=== PATIENT | female | born 1960 | race Caucasian/White ===

== ENCOUNTER 2019-12-09 21:58 | Emergency (ER) | payer MEDICARE, MEDICAID ==
[~2019-12-09] VITALS: Ht 162.6 cm; Wt 100.0 kg
[~2019-12-09 21:58] MED LIST: COLACE100 MG PO; EFFEXOR75 MG PO; ELIQUIS2.5 MG PO; HYDROCODONE-APA1 TAB PO; IPRAT-ALBUT 0.5-3 ML UPD; KEFLEX500 MG PO; KLONOPIN0.5 MG PO; PERCOCET 10/3251 TA1 PO; PHENERGAN25 M1 PO; PROTONIX40 MG PO; ZOCOR40 MG PO
[2019-12-09 22:09] VITALS: Ht 162.6 cm; Wt 100.0 kg
[2019-12-09] MEDS ORDERED: CBD OIL (22:10)
[2019-12-09] MEDS ORDERED: CYCLOBENZAPRINE10 MG PO (23:27)
[2019-12-09] MEDS ORDERED: NAPROSYN500 MG PO (23:27)
[2019-12-09 23:49] VITALS: BP 145/80
== END 2019-12-10 00:04 | disposition home or self-care (01) ==
LOC: D.ER 21:58
DX: S16.1XXA Strain of muscle, fascia and tendon at neck level, initial encounter (principal); S06.0X9A Concussion with loss of consciousness of unspecified duration, initial encounter; Y04.8XXA Assault by other bodily force, initial encounter; Y93.9 Activity, unspecified; Y92.9 Unspecified place or not applicable; M54.2 Cervicalgia; M54.5 Low back pain; M25.512 Pain in left shoulder